=== PATIENT | male | born 1945 | race Caucasian/White ===

== ENCOUNTER 2018-06-08 12:46 | Inpatient (IN) | payer MEDICARE ==
[2018-06-08 13:14] LABS: % BASOPHILS 0.2 % (0.0-2.0); % EOSINOPHILS 1.4 % (0.0-5.0); % LYMPHOCYTES 14.3 % (20.0-50.0); % MONOCYTES 7.6 % (2.0-10.0); % NEUTROPHILS 76.5 % (40.0-80.0); EOSINOPHILE ABSOLUTE 0.2 Th/cmm (0.1-0.4); HEMATOCRIT 43.7 % (41.0-60); HEMOGLOBIN 14.5 gm/dL (12-16); LYMPHOCYTE ABSOLUTE 1.8 Th/cmm (1.5-3.0); MEAN CELL VOLUME 86.1 fl (80-99); MEAN CORPUSCULAR HEMOGLOBIN 28.6 pg (27.0-31.0); MEAN CORPUSCULAR HGB CONC 33.3 pg (28.0-36.0); MEAN PLATELET VOLUME 6.6 fl; MONOCYTE ABSOLUTE 0.9 Th/cmm (0.3-1.0); NEUTROPHILE ABSOLUTE 9.4 Th/cmm (1.8-8.0); PLATELET COUNT 237 Th/cmm (150-400); RED BLOOD COUNT 5.07 Mil/cmm (3.80-5.80); RED CELL DISTRIBUTION WIDTH 13.6 % (11.5-20.0); WHITE BLOOD COUNT 12.3 Th/cmm (4.8-10.8)
--- NOTE | 2018-06-08 13:19 | ED Physician Chart ---
ED Chief Complaint/HPI - Patient Information Date Seen:: 06/08/18 Time Seen:: 13:14 Chief Complaint:: abdominal pain History of Present Illness:: this is a 73 yr old male who is here from a [facility] sent here for abdominal pain. He is mentally challenged and cannot understand anything that is said. Allergies:: Allergies Allergy/AdvReac Type Severity Reaction Status Date / Time No Known Allergies Allergy Verified 06/08/18 13:03 Vitals:: Vital Signs - 8 hr 06/08/18 13:03 Temp 97.5 F HR 80 RR 18 BP 120/74 O2 Sat % 99 Historian:: Medical Records Review:: Nurse's Note Reviewed, Transfer documents Reviewed ED Review of Systems - Review of Systems General/Constitutional: No fever, No chills, No weight loss, No weakness, No diaphoresis, No edema, No loss of appetite, Other (this patient is unable to give a review of systems) Skin: No skin lesions, No rash, No bruising Head: No headache, No light-headedness Eyes: No loss of vision, No pain, No diplopia ENT: No earache, No nasal drainage, No sore throat, No tinnitus Neck: No neck pain, No swelling, No thyromegaly, No stiffness, No mass noted Cardio Vascular: No chest pain, No palpitations, No PND, No orthopnea, No edema Pulmonary: No SOB, No cough, No sputum, No wheezing GI: No nausea, No vomiting, No diarrhea, No pain, No melena, No hematochezia, No constipation, No hematemesis G/U: No dysuria, No frequency, No hematuria Musculoskeletal: No bone or joint pain, No back pain, No muscle pain Endocrine: No polyuria, No polydipsia Psychiatric: No prior psych history, No depression, No anxiety, No suicidal ideation Hematopoietic: No bruising, No lymphadenopathy Allergic/Immuno: No urticaria, No angioedema Neurological: No syncope, No focal symptoms, No weakness, No paresthesia, No headache, No seizure, No dizziness, No confusion, No vertigo ED Past Medical History - Past Medical History Obtainable: Yes Past Medical History: HTN, Dementia Family History: None Social History: Non Smoker, No Alcohol, No Drug Use, , Care Facility Surgical History: None Psychiatricy History: Depression Medication: Reviewed Family Medical History - Family Member Mother History Unknown: Yes ED Physical Exam - Physical Examination General/Constitutional: Awake, Well-developed, well-nourished, Alert, No distress, GCS 15, Non-toxic appearing, Ambulatory Head: Atraumatic Eyes: Lids, conjuctiva normal, PERRL, EOMI Skin: Nl inspection, No rash, No skin lesions, No ecchymosis, Well hydrated, No lymphadenopathy ENMT: External ears, nose nl, Nasal exam nl, Lips, teeth, gums nl Neck: Nontender, Full ROM w/o pain, No JVD, No nuchal rigidity, No bruit, No mass, No stridor Respiratory: Nl effort/Exclusion, Clear to Auscultation, No Wheeze/Rhonchi/Rales Cardio Vascular: RRR, No murmur, gallop, rubs, NL S1 S2 GI: No tenderness/rebounding/guarding, No organomegaly, No hernia, Normal BS's, Nondistended, No mass/bruits, No McBurney tenderness : No CVA tenderness Extremities: No tenderness or effusion, Full ROM, normal strength in all extremities, No edema, Normal digits & nails Neuro/Psych: Alert/oriented, DTR's symmetric, Normal sensory exam, Normal motor strength, Judgement/insight normal, Mood normal, Normal gait, No focal deficits Misc: Normal back, No paraspinal tenderness ED Labs/Radiology/EKG Results - Lab Results Results: Laboratory Results - last 24 hr 06/08/18 06/08/18 06/08/18 13:00 13:00 13:00 WBC 12.3 H RBC 5.07 Hgb 14.5 Hct 43.7 MCV 86.1 MCH 28.6 MCHC Differential 33.3 RDW 13.6 Plt Count 237 MPV 6.6 Neutrophils % 76.5 Lymphocytes % 14.3 L Monocytes % 7.6 Eosinophils % 1.4 Basophils % 0.2 PT 10.4 INR 1.00 Sodium 134 L Potassium 3.8 Chloride 102 Carbon Dioxide 25.3 Anion Gap 10.5 BUN 16 Creatinine 0.7 Est GFR ( Amer) TNP Est GFR (Non-Af Amer) TNP BUN/Creatinine Ratio 22.9 Glucose 119 H Calcium 9.2 Total Bilirubin 0.8 AST 11 L ALT 11 Alkaline Phosphatase 48 Troponin I Total Protein 6.6 Albumin 3.7 L Globulin 2.9 Albumin/Globulin Ratio 1.3 TSH 06/08/18 06/08/18 13:00 13:00 WBC RBC Hgb Hct MCV MCH MCHC Differential RDW Plt Count MPV Neutrophils % Lymphocytes % Monocytes % Eosinophils % Basophils % PT INR Sodium Potassium Chloride Carbon Dioxide Anion Gap BUN Creatinine Est GFR ( Amer) Est GFR (Non-Af Amer) BUN/Creatinine Ratio Glucose Calcium Total Bilirubin AST ALT Alkaline Phosphatase Troponin I < 0.01 L Total Protein Albumin Globulin Albumin/Globulin Ratio TSH 1.83 - Radiology Results Results: ct scan of abdomen = severely enlarged prostate gland L2 compression fracture chest x-ray = nad - EKG Interpretations EKG Time:: 13:08 Rate & Rhythm: ratee= 68 , sinus [place]: left axis Intervals: no ectopy noted ED Assessment - Assessment General Assessment: abdominal pain prostate disease back pain ED Septic Shock - . Is Septic Shock (SBP<90, OR Lactate>4 mmol\L) present?: No - <6hrs of presentation: Vital Signs: Vital Signs - 8 hr 06/08/18 13:03 Temp 97.5 F HR 80 RR 18 BP 120/74 O2 Sat % 99 ED Reassessment (Disposition) - Reassessment Reassessment Condition:: Unchanged - Diagnosis Diagnosis:: acute abdominal pain dementia severe prostate disease L2 compression fracture - Patient Disposition Discharge/Transfer:: Acute Care w/in this hosp Admitting Medical Physician:: Fernando Younger Condition at Disposition:: Improved
[2018-06-08 13:22] LABS: PROTHROMBIN TIME (TEST) 10.4 SECONDS (9.5-11.5)
[2018-06-08 13:24] LABS: ALB/GLOB RATIO 1.3 (1.0-1.8); ALBUMIN 3.7 gm/dL (4.2-5.5); ALKALINE PHOSPHATASE 48 U/L (34-104); ANION GAP 10.5 (7.0-16.0); BILIRUBIN,TOTAL 0.8 mg/dL (0.3-1.0); BUN - UREA NITROGEN 16 mg/dL (7-25); CALCIUM SERUM 9.2 mg/dL (8.6-10.3); CARBON DIOXIDE 25.3 mEq/L (21.0-31.0); CHLORIDE 102 mEq/L (98-107); CREATININE - SERUM 0.7 mg/dL (0.7-1.3); GLUCOSE 119 mg/dL (70-105); POTASSIUM SERUM 3.8 mEq/L (3.5-5.1); SGOT 11 U/L (13-39); SGPT/ALT 11 U/L (7-52); SODIUM SERUM 134 mEq/L (136-145); TOTAL PROTEIN,SERUM 6.6 gm/dL (6.0-8.3)
--- NOTE | 2018-06-08 13:54 | Diagnostic Imaging Report ---
Portable chest x-ray History: Pain Allowing for portable technique the heart size is normal. No focal pulmonary parenchymal processes. No hilar or mediastinal abnormalities. Impression: No acute abnormalities.
[2018-06-08] MEDS ORDERED: Haloperidol Lactate 5 mg/mL 1mL Vial IM STA (14:29)
[2018-06-08] MEDS ORDERED: Haloperidol Lactate 5 mg/mL 1mL Vial ONE (14:34)
[2018-06-08 15:45] LABS: URINE SOURCE CLEAN C
[2018-06-08 15:56] LABS: URINE BILIRUBIN NEGATIVE (NEGATIVE); URINE BLOOD NEGATIVE (NEGATIVE); URINE GLUCOSE (UA) NEGATIVE (NEGATIVE); URINE KETONE NEGATIVE (NEGATIVE); URINE LEUKOCYTE ESTERASE NEGATIVE (NEGATIVE); URINE NITRATE NEGATIVE (NEGATIVE); URINE PH 6.5 (4.6 - 8.0); URINE PROTEIN NEGATIVE (NEGATIVE); URINE UROBILINOGEN 0.2 E.U./dL (0.2 - 1.0)
[2018-06-08 15:57] LABS: URINE CLARITY CLEAR (CLEAR); URINE COLOR YELLOW; URINE MICROSCOPIC INDICATED? YES
[2018-06-08 16:04] LABS: URINE RBC 0-2 /hpf (0-5)
[2018-06-08 16:05] LABS: URINE BACTERIA FEW /hpf (NONE SEEN); URINE EPITHELIAL CELLS FEW /lpf (FEW)
[2018-06-08] MEDS ORDERED: Acetaminophen 500 MG TAB PO PRN (21:27)
[2018-06-08] MEDS ORDERED: Fleet Enema 135 mL RC PRN (21:27)
--- NOTE | 2018-06-08 21:51 | History & Physical ---
ADMIT DATE: 06/08/2018 CHIEF COMPLAINT: Worsening confusion and abdominal pain. HISTORY OF PRESENT ILLNESS: The patient is a 73-year-old male admitted from the Emergency Room to telemetry floor of [facility] due to altered level of consciousness with dysphagia and acute abdominal pain. For the abdominal pain, according to the ER physician, abdominal and pelvic CT scan revealed no acute disease, but a significant partially enlargement. However, I do not have the official report of the CT scan yet. The patient is very confused, does not answer questions. His white count is elevated to 12,300. The patient's sodium is 134. Troponin less than 0.01. TSH 1.83, which is normal. CT scan of the abdomen also revealed L2 compression fracture. PAST MEDICAL HISTORY: Including urinary tract infection, dysphagia, abnormal posture, weakness, dementia, depression, anxiety. PAST SURGICAL HISTORY: This cannot be reliably obtained as the patient does not answer questions. MEDICATIONS: See medication reconciliation list. ALLERGIES: No known drug allergies. REVIEW OF SYSTEMS: Not feasible. PHYSICAL EXAMINATION: GENERAL: Well-developed female in no acute distress. SKIN: Warm. VITAL SIGNS: Basically stable. HEENT: Normocephalic, atraumatic. Pupils equal, round, react to light and accommodation. CHEST: Symmetrical. LUNGS: Clear to auscultation bilaterally. CARDIAC: Normal sinus rhythm. ABDOMEN: Benign, soft, nontender. EXTREMITIES: No clubbing, cyanosis, edema bilaterally, 2+. NEUROLOGIC: Unremarkable. LABORATORY DATA: Reviewed as seen from the computer. ASSESSMENT AND PLAN: 1. Altered level of consciousness: Probably due to metabolic encephalopathy and dementia. We will observe closely. 2. Abdominal pain: Etiology is not entirely clear. We will observe closely. 3. Leukocytosis: Blood culture ordered, empiric antibiotics started, which will be adjusted accordingly. 4. Dysphagia: Swallowing evaluation ordered and aspiration precaution. 5. L2 compression fracture: Physical therapy. 6. DVT prophylaxis. JOB# [id number]
[2018-06-08] MEDS: D5-0.9%NS 1,000 ML IV SCH (23:17)
--- NOTE | 2018-06-09 10:40 | Diagnostic Imaging Report ---
Exam: CT examination abdomen pelvis. HISTORY: Abdominal pain Total DLP equals 586 CTDI equals 10.8 Findings: Multiple contiguous thin section of the abdomen pelvis obtained from lower thorax to pubic symphysis without the administration of oral or intravenous contrast material, no prior studies available comparison. The study demonstrates a mild motion artifacts. Liver and spleen are intact. The gallbladder is normal. The kidneys demonstrate no evidence of obstructive uropathy or nephrolithiasis. Small vascular calcification right kidney appreciated Abdominal aorta is calcified. There is evidence of for enlarged prostate gland protruding into urinary bladder. Degenerative changes lumbar spine with the compression fracture of L2 lumbar vertebra appreciated most likely chronic. There is no evidence for lytic or blastic lesions. IMPRESSION: Large prostate gland protruding to urinary bladder using the bladder wall is thickened. Degenerative changes lumbar spine with L2 lumbar vertebra compression.
[2018-06-09] MEDS: Multivitamin w/ Minerals Tab PO SCH (12:47)
[2018-06-09] MEDS ORDERED: VTE Chemical Prophylaxis Screen/Admission MC PRN (14:27)
[2018-06-09] MEDS ORDERED: Probiotic Screen MC PRN (15:32)
[2018-06-09] MEDS: D5-0.9%NS 1,000 ML IV SCH (15:40)
[2018-06-09] MEDS: Lactobacillus Rhamnosus GG 15 Billion CFU CAP.SPRINK PO SCH (16:58)
--- NOTE | 2018-06-09 17:23 | Consultation ---
DATE OF CONSULTATION: 06/09/2018 HISTORY OF PRESENT ILLNESS: A 73-year-old male coming in from senior living. Apparently mentally challenged, is not really able to understand much. The patient is not answering any questions, not even his name, does not know where he is, does not know the year, does not know the month. Per staff, he is trying to hit staff, agitated, aggressive, highly impulsive. PAST PSYCHIATRIC HISTORY: Developmental disability. FAMILY HISTORY: Noncontributory. SOCIAL HISTORY: Coming in from senior living. Daughter involved. MEDICATIONS: Noted. MENTAL STATUS EXAMINATION: Stated age. Fair eye contact. Awake, alert, but very confused, disoriented, not answering any questions appropriately. No overt SI or HI, unclear psychotic symptoms. Poor impulse control. PROVISIONAL DIAGNOSES: Developmental disability. The patient is on Aricept, possible dementia. Diagnosis also psychosis, unspecified; mood, unspecified; anxiety, unspecified. MEDICAL: Please see full H and P. RECOMMENDATIONS AND PLAN: We will attempt to increase collateral. The patient may benefit from dosing of Depakote. The patient may need Geropsych placement if behaviors persist. JOB# [id number]
[2018-06-09] MEDS ORDERED: Magnesium Hydroxide (MOM) 30 mL UDC PO SCH (21:00)
[2018-06-10] MEDS: D5-0.9%NS 1,000 ML IV SCH ×2 (04:55→18:28)
[2018-06-10] MEDS: Multivitamin w/ Minerals Tab PO SCH (09:15)
[2018-06-10] MEDS: Lactobacillus Rhamnosus GG 15 Billion CFU CAP.SPRINK PO SCH (09:15)
--- NOTE | 2018-06-10 10:26 | Internal Medicine Prog Note ---
Internal Medicine Subjective - Subjective Service Date: 06/10/18 Patient seen and examined:: without staff Patient is:: awake, non-verbal, non-interactive, in bed Per staff patient has:: no adverse event Internal Medicine Objective - Results Result Diagrams: 06/08/18 13:00 06/08/18 13:00 Recent Labs: Laboratory Last Values WBC 12.3 Th/cmm (4.8-10.8) H 06/08/18 13:00 RBC 5.07 Mil/cmm (3.80-5.80) 06/08/18 13:00 Hgb 14.5 gm/dL (12-16) 06/08/18 13:00 Hct 43.7 % (41.0-60) 06/08/18 13:00 MCV 86.1 fl (80-99) 06/08/18 13:00 MCH 28.6 pg (27.0-31.0) 06/08/18 13:00 MCHC Differential 33.3 pg (28.0-36.0) 06/08/18 13:00 RDW 13.6 % (11.5-20.0) 06/08/18 13:00 Plt Count 237 Th/cmm (150-400) 06/08/18 13:00 MPV 6.6 fl 06/08/18 13:00 Neutrophils % 76.5 % (40.0-80.0) 06/08/18 13:00 Lymphocytes % 14.3 % (20.0-50.0) L 06/08/18 13:00 Monocytes % 7.6 % (2.0-10.0) 06/08/18 13:00 Eosinophils % 1.4 % (0.0-5.0) 06/08/18 13:00 Basophils % 0.2 % (0.0-2.0) 06/08/18 13:00 PT 10.4 SECONDS (9.5-11.5) 06/08/18 13:00 INR 1.00 (0.5-1.4) 06/08/18 13:00 Sodium 134 mEq/L (136-145) L 06/08/18 13:00 Potassium 3.8 mEq/L (3.5-5.1) 06/08/18 13:00 Chloride 102 mEq/L (98-107) 06/08/18 13:00 Carbon Dioxide 25.3 mEq/L (21.0-31.0) 06/08/18 13:00 Anion Gap 10.5 (7.0-16.0) 06/08/18 13:00 BUN 16 mg/dL (7-25) 06/08/18 13:00 Creatinine 0.7 mg/dL (0.7-1.3) 06/08/18 13:00 Est GFR ( Amer) TNP 06/08/18 13:00 Est GFR (Non-Af Amer) TNP 06/08/18 13:00 BUN/Creatinine Ratio 22.9 06/08/18 13:00 Glucose 119 mg/dL (70-105) H 06/08/18 13:00 Calcium 9.2 mg/dL (8.6-10.3) 06/08/18 13:00 Total Bilirubin 0.8 mg/dL (0.3-1.0) 06/08/18 13:00 AST 11 U/L (13-39) L 06/08/18 13:00 ALT 11 U/L (7-52) 06/08/18 13:00 Alkaline Phosphatase 48 U/L (34-104) 06/08/18 13:00 Troponin I < 0.01 ng/mL (0.01-0.05) L 06/08/18 13:00 Total Protein 6.6 gm/dL (6.0-8.3) 06/08/18 13:00 Albumin 3.7 gm/dL (4.2-5.5) L 06/08/18 13:00 Globulin 2.9 gm/dL 06/08/18 13:00 Albumin/Globulin Ratio 1.3 (1.0-1.8) 06/08/18 13:00 TSH 1.83 uIU/ml (0.34-5.60) 06/08/18 13:00 Urine Source CLEAN C 06/08/18 15:30 Urine Color YELLOW 06/08/18 15:30 Urine Clarity CLEAR (CLEAR) 06/08/18 15:30 Urine pH 6.5 (4.6 - 8.0) 06/08/18 15:30 Ur Specific Ethel 1.010 (1.005-1.030) 06/08/18 15:30 Urine Protein NEGATIVE mg/dL (NEGATIVE) 06/08/18 15:30 Urine Glucose (UA) NEGATIVE mg/dL (NEGATIVE) 06/08/18 15:30 Urine Ketones NEGATIVE mg/dL (NEGATIVE) 06/08/18 15:30 Urine Blood NEGATIVE (NEGATIVE) 06/08/18 15:30 Urine Nitrate NEGATIVE (NEGATIVE) 06/08/18 15:30 Urine Bilirubin NEGATIVE (NEGATIVE) 06/08/18 15:30 Urine Urobilinogen 0.2 E.U./dL (0.2 - 1.0) 06/08/18 15:30 Ur Leukocyte Esterase NEGATIVE (NEGATIVE) 06/08/18 15:30 Urine RBC 0-2 /hpf (0-5) H 06/08/18 15:30 Urine WBC 2-5 /hpf (0-5) 06/08/18 15:30 Ur Epithelial Cells FEW /lpf (FEW) 06/08/18 15:30 Urine Bacteria FEW /hpf (NONE SEEN) 06/08/18 15:30 - Physical Exam Vitals and I&O: Vital Signs Temp 97.9 F 06/10/18 04:00 Pulse 69 06/10/18 04:00 Resp 18 06/10/18 04:00 BP 134/68 06/10/18 04:00 Pulse Ox 96 06/10/18 04:00 Intake & Output 06/09/18 06/10/18 06/10/18 18:59 06:59 18:59 Intake Total 1000 1720 Balance 1000 1720 Weight (lbs) 70.806 kg Intake: Intake, IV Amount 1000 1000 D5-0.9%Ns 1,000 ml @ 80 1000 1000 mls/hr IV .[id number] [facility] Rx #:[id number] Oral 720 Other: # Voids 1 # Bowel Movements 1 Stool Characteristics Liquid Black Weight Source Bedscale Active Medications: Current Medications Acetaminophen (Tylenol) 650 mg PO Q4HR PRN PRN Reason: Pain or Fever >101 Stop: 08/07/18 21:26 Last Admin: 06/09/18 20:23 Dose: 650 mg Acetaminophen (Tylenol Extra Strength) 1,000 mg PO Q4HR PRN PRN Reason: Pain (Moderate) 4-7 Stop: 08/07/18 21:26 Benztropine Mesylate (Cogentin) 0.5 mg PO BID [facility] Stop: 08/08/18 08:59 Last Admin: 06/10/18 09:15 Dose: 0.5 mg Bisacodyl (Dulcolax 10 Mg Supp) 10 mg RC DAILY PRN PRN Reason: Constipation Stop: 08/07/18 21:26 Clonazepam (Klonopin) 0.5 mg PO HS [facility]; Protocol Stop: 08/08/18 20:59 Last Admin: 06/09/18 20:23 Dose: 0.5 mg Docusate Sodium (Colace) 250 mg PO DAILY [facility] Stop: 08/08/18 08:59 Last Admin: 06/09/18 12:46 Dose: Not Given Donepezil HCl (Aricept) 5 mg PO Q12HR [facility] Stop: 08/07/18 21:59 Last Admin: 06/10/18 09:15 Dose: 5 mg Heparin Sodium (Porcine) (Heparin) 5,000 units SUBQ Q12HR [facility] Stop: 08/08/18 20:59 Last Admin: 06/10/18 09:15 Dose: 5,000 units Dextrose/Sodium Chloride (D5-0.9%Ns) 1,000 mls @ 80 mls/hr IV .[id number] [facility] Stop: 08/07/18 21:59 Last Admin: 06/10/18 04:55 Dose: 80 mls/hr Ceftriaxone Sodium 1 gm/ (Dextrose) 50 mls @ 100 mls/hr IV Q24HR [facility] Stop: 08/08/18 12:59 Last Admin: 06/09/18 13:02 Dose: 100 mls/hr Influenza Virus Vaccine (Flu Ad) 0.5 ml IM .ONCE ONE Stop: 06/10/18 14:01 Lactobacillus Rhamnosus (Culturelle 15b) 1 each PO DAILY [facility] Stop: 08/08/18 15:59 Last Admin: 06/10/18 09:15 Dose: 1 each Lorazepam (Ativan) 0.5 mg IVP Q6H PRN; Protocol PRN Reason: Agitation Stop: 08/08/18 12:09 Last Admin: 06/10/18 09:52 Dose: 0.5 mg Magnesium Hydroxide (Milk Of Magnesia) 30 ml PO HS [facility] Stop: 08/08/18 20:59 Last Admin: 06/09/18 20:28 Dose: Not Given Megestrol Acetate (Megace) 400 mg PO BID [facility] Stop: 08/08/18 08:59 Last Admin: 06/09/18 16:56 Dose: 400 mg Memantine (Namenda) 5 mg PO Q12HR [facility] Stop: 08/07/18 21:59 Last Admin: 06/10/18 09:15 Dose: 5 mg Mirtazapine (Remeron) mg PO HS [facility]; Protocol Stop: 08/08/18 20:59 Miscellaneous (Vte Chemical Prophylaxis Screen/ Admission) 1 ea [facility] PRN PRN PRN Reason: PROTOCOL Stop: 08/08/18 14:26 Miscellaneous (Probiotic Screen) 1 ea [facility] PRN PRN PRN Reason: PROTOCOL Stop: 08/08/18 15:31 Psyllium Hydrophilic Mucilloid (Metamucil) 1 pkt PO BID [facility] Stop: 08/08/18 08:59 Last Admin: 06/09/18 16:56 Dose: 1 pkt Sodium Phosphate (Fleet Enema) 135 ml RC Q48H PRN PRN Reason: Constipation Stop: 08/07/18 21:26 General: weak, lethargic, demented HEENT: NC/AT, PERRLA, anicteric sclerae Neck: Supple, No JVD Lungs: CTAB, congested Cardiovascular: RRR, Normal S1, Normal S2 Abdomen: soft, non-distended Extremities: clear Internal Medicine Assmt/Plan - Assessment Assessment: ALOC: observe for now. Leukocystosis: etiology? repeat CBC Abd pain: better. Enlarged prostate on CT: PSA ordered. Agitation: observe Psychosis: adjusting meds. Dysphagia: ST and aspiration evaluation.
[2018-06-10] MEDS ORDERED: Influenza Vaccine (65 yr & older) 0.5 ml Syr IM ONE (14:00)
[2018-06-10] MEDS ORDERED: Diltiazem 30 mg Tab PO SCH (19:15)
[2018-06-10] MEDS ORDERED: Acetaminophen 500 MG TAB PO PRN (23:26)
[2018-06-11] MEDS ORDERED: Fleet Enema 135 mL RC PRN (00:16)
[2018-06-11] MEDS ORDERED: Magnesium Hydroxide (MOM) 30 mL UDC PO PRN (00:22)
--- NOTE | 2018-06-11 00:47 | Consultation ---
DATE OF CONSULTATION: 06/10/2018 HISTORY OF PRESENT ILLNESS: A 73-year-old male coming from [facility] with developmental disability, unable to even tell me his name. Per staff, noted to be restless, ongoing safety concerns. Per social worker delinquency prevention, the patient coming from [place]. The patient still needing restraints at times, still unruly, not following unit rules or directions. The patient biting and pulling IV line. PAST PSYCHIATRIC HISTORY: Noted. MENTAL STATUS EXAMINATION: Stated age, AO to zero, restless, unruly, still anxious, agitated, trying to bite staff. Medications were noted. PROVISIONAL DIAGNOSIS: No change. Developmental disability; mood, unspecified; anxiety, unspecified; psychosis, unspecified. RECOMMENDATIONS AND PLAN: We will attempt to reach out to daughter. We will attempt to increase collateral. Clarify diagnosis. It is unclear if the differential is correct perhaps possibly just dementia with behaviors. It is unclear if developmental disability is accurate. The patient may need transfer to [facility]. [facility]# [id number]
[2018-06-11 06:29] LABS: % BASOPHILS 0.3 % (0.0-2.0); % EOSINOPHILS 5.6 % (0.0-5.0); % LYMPHOCYTES 9.2 % (20.0-50.0); % MONOCYTES 9.4 % (2.0-10.0); % NEUTROPHILS 75.5 % (40.0-80.0); EOSINOPHILE ABSOLUTE 0.6 Th/cmm (0.1-0.4); HEMATOCRIT 39.6 % (41.0-60); HEMOGLOBIN 13.4 gm/dL (12-16); MEAN CELL VOLUME 85.5 fl (80-99); MEAN CORPUSCULAR HEMOGLOBIN 28.9 pg (27.0-31.0); MEAN CORPUSCULAR HGB CONC 33.8 pg (28.0-36.0); MEAN PLATELET VOLUME 6.8 fl; NEUTROPHILE ABSOLUTE 8.1 Th/cmm (1.8-8.0); PLATELET COUNT 213 Th/cmm (150-400); RED BLOOD COUNT 4.63 Mil/cmm (3.80-5.80); RED CELL DISTRIBUTION WIDTH 13.2 % (11.5-20.0); WHITE BLOOD COUNT 10.7 Th/cmm (4.8-10.8)
[2018-06-11 06:51] LABS: ALB/GLOB RATIO 0.9 (1.0-1.8); ALBUMIN 2.7 gm/dL (4.2-5.5); ALKALINE PHOSPHATASE 48 U/L (34-104); ANION GAP 10.5 (7.0-16.0); BUN - UREA NITROGEN 5 mg/dL (7-25); CALCIUM SERUM 8.3 mg/dL (8.6-10.3); CHLORIDE 106 mEq/L (98-107); CREATININE - SERUM 0.6 mg/dL (0.7-1.3); GLUCOSE 125 mg/dL (70-105); POTASSIUM SERUM 3.5 mEq/L (3.5-5.1); SGOT 15 U/L (13-39); SGPT/ALT 20 U/L (7-52); SODIUM SERUM 135 mEq/L (136-145); TOTAL PROTEIN,SERUM 5.8 gm/dL (6.0-8.3)
[2018-06-11] MEDS: D5-0.9%NS 1,000 ML IV SCH ×2 (06:52→21:49)
[2018-06-11] MEDS: Diltiazem 30 mg Tab PO SCH ×3 (07:11→17:39)
[2018-06-11] MEDS: Multivitamin w/ Minerals Tab PO SCH (09:35)
[2018-06-11] MEDS: Lactobacillus Rhamnosus GG 15 Billion CFU CAP.SPRINK PO SCH (09:35)
--- NOTE | 2018-06-11 15:35 | Consultation ---
DATE OF CONSULTATION: 06/11/[address] Younger. HISTORY OF PRESENT ILLNESS: This is a 73-year-old male patient who had been complaining of abdominal pain, severe. Following this, the patient was seen in the Emergency Room. The patient had a CT scan, which showed compression fracture of L2. The patient is admitted. Cardiac consult is requested. PAST MEDICAL HISTORY: Dementia, BPH, urinary tract infection, psychosis, and dysphagia. FAMILY HISTORY: Unremarkable. SOCIAL HISTORY: No history of smoking, alcohol abuse. ALLERGIES: None. PHYSICAL EXAMINATION: VITAL SIGNS: Blood pressure 130/80, pulse 70, and respirations 20. HEAD: Normocephalic. No lumps or bumps. EYES: Pupils equal, reactive to light. Fundi show AV nicking, sclerae white, conjunctivae pink. NECK: Carotid 2+. Normal upstroke. JVD flat. Thyroid not palpable. Lymph nodes not palpable. CHEST: Shows increased AP diameter. No kyphosis, scoliosis. LUNGS: Bilateral bronchovesicular breath sounds. HEART: PMI fifth intercostal space with lateral to midclavicular line. S1, S2. No S3, S4, soft systolic murmur. ABDOMEN: Soft. Liver, spleen not palpable. No organomegaly. Bowel sounds active. NEUROLOGIC: Unremarkable. EXTREMITIES: Peripheral pulses 2+. No pedal edema. CLINICAL IMPRESSION: L2 compression fracture, benign prostatic hypertrophy, urinary tract infection, dementia, psychosis, and dysphagia. PLAN: The patient to continue present management and monitor the patient. [facility]# [id number]
--- NOTE | 2018-06-11 22:51 | Internal Medicine Prog Note ---
Internal Medicine Subjective - Subjective Service Date: 06/11/18 Patient seen and examined:: without staff Patient is:: awake, non-verbal, non-interactive, in bed Per staff patient has:: no adverse event Internal Medicine Objective - Results Result Diagrams: 06/11/18 05:45 06/11/18 05:45 Recent Labs: Laboratory Last Values WBC 10.7 Th/cmm (4.8-10.8) 06/11/18 05:45 RBC 4.63 Mil/cmm (3.80-5.80) 06/11/18 05:45 Hgb 13.4 gm/dL (12-16) 06/11/18 05:45 Hct 39.6 % (41.0-60) L 06/11/18 05:45 MCV 85.5 fl (80-99) 06/11/18 05:45 MCH 28.9 pg (27.0-31.0) 06/11/18 05:45 MCHC Differential 33.8 pg (28.0-36.0) 06/11/18 05:45 RDW 13.2 % (11.5-20.0) 06/11/18 05:45 Plt Count 213 Th/cmm (150-400) 06/11/18 05:45 MPV 6.8 fl 06/11/18 05:45 Neutrophils % 75.5 % (40.0-80.0) 06/11/18 05:45 Lymphocytes % 9.2 % (20.0-50.0) L 06/11/18 05:45 Monocytes % 9.4 % (2.0-10.0) 06/11/18 05:45 Eosinophils % 5.6 % (0.0-5.0) H 06/11/18 05:45 Basophils % 0.3 % (0.0-2.0) 06/11/18 05:45 PT 10.4 SECONDS (9.5-11.5) 06/08/18 13:00 INR 1.00 (0.5-1.4) 06/08/18 13:00 Sodium 135 mEq/L (136-145) L 06/11/18 05:45 Potassium 3.5 mEq/L (3.5-5.1) 06/11/18 05:45 Chloride 106 mEq/L (98-107) 06/11/18 05:45 Carbon Dioxide 22.0 mEq/L (21.0-31.0) 06/11/18 05:45 Anion Gap 10.5 (7.0-16.0) 06/11/18 05:45 BUN 5 mg/dL (7-25) L 06/11/18 05:45 Creatinine 0.6 mg/dL (0.7-1.3) L 06/11/18 05:45 Est GFR ( Amer) TNP 06/11/18 05:45 Est GFR (Non-Af Amer) TNP 06/11/18 05:45 BUN/Creatinine Ratio 8.3 06/11/18 05:45 Glucose 125 mg/dL (70-105) H 06/11/18 05:45 Calcium 8.3 mg/dL (8.6-10.3) L 06/11/18 05:45 Magnesium 1.9 mg/dL (1.9-2.7) 06/10/18 10:30 Total Bilirubin 1.0 mg/dL (0.3-1.0) 06/11/18 05:45 AST 15 U/L (13-39) 06/11/18 05:45 ALT 20 U/L (7-52) 06/11/18 05:45 Alkaline Phosphatase 48 U/L (34-104) 06/11/18 05:45 Troponin I < 0.01 ng/mL (0.01-0.05) L 06/08/18 13:00 Total Protein 5.8 gm/dL (6.0-8.3) L 06/11/18 05:45 Albumin 2.7 gm/dL (4.2-5.5) L 06/11/18 05:45 Globulin 3.1 gm/dL 06/11/18 05:45 Albumin/Globulin Ratio 0.9 (1.0-1.8) L 06/11/18 05:45 Carcinoembryonic Ag 2.2 ng/mL (0.0-4.7) 06/08/18 13:00 Prostate Specific Ag 2.2 ng/mL (0.0-4.0) 06/08/18 13:00 TSH 1.83 uIU/ml (0.34-5.60) 06/08/18 13:00 Urine Source CLEAN C 06/08/18 15:30 Urine Color YELLOW 06/08/18 15:30 Urine Clarity CLEAR (CLEAR) 06/08/18 15:30 Urine pH 6.5 (4.6 - 8.0) 06/08/18 15:30 Ur Specific [place] 1.010 (1.005-1.030) 06/08/18 15:30 Urine Protein NEGATIVE mg/dL (NEGATIVE) 06/08/18 15:30 Urine Glucose (UA) NEGATIVE mg/dL (NEGATIVE) 06/08/18 15:30 Urine Ketones NEGATIVE mg/dL (NEGATIVE) 06/08/18 15:30 Urine Blood NEGATIVE (NEGATIVE) 06/08/18 15:30 Urine Nitrate NEGATIVE (NEGATIVE) 06/08/18 15:30 Urine Bilirubin NEGATIVE (NEGATIVE) 06/08/18 15:30 Urine Urobilinogen 0.2 E.U./dL (0.2 - 1.0) 06/08/18 15:30 Ur Leukocyte Esterase NEGATIVE (NEGATIVE) 06/08/18 15:30 Urine RBC 0-2 /hpf (0-5) H 06/08/18 15:30 Urine WBC 2-5 /hpf (0-5) 06/08/18 15:30 Ur Epithelial Cells FEW /lpf (FEW) 06/08/18 15:30 Urine Bacteria FEW /hpf (NONE SEEN) 06/08/18 15:30 - Physical Exam Vitals and I&O: Vital Signs Temp 99.1 F 06/11/18 20:00 Pulse 89 06/11/18 20:00 Resp 18 06/11/18 20:00 BP 103/63 06/11/18 20:00 Pulse Ox 99 06/11/18 20:00 Intake & Output 06/11/18 06/11/18 06/12/18 06:59 18:59 06:59 Intake Total 650 550 606.667 Balance 650 550 606.667 Weight (lbs) 71.214 kg 70.987 kg Intake: Intake, IV Amount 50 606.667 D5-0.9%Ns 1,000 ml @ 50 606.667 mls/hr IV .Q20H [facility] Rx#: [id number] cefTRIAXone 1 gm In 50 Dextrose 5% 50 ml @ 100 mls/hr IV Q24HR [facility] Rx#: [id number] Oral 600 550 Other: # Voids 2 3 # Bowel Movements 1 1 Weight Source Bedscale Bedscale Active Medications: Current Medications Acetaminophen (Tylenol) 650 mg PO Q4H PRN PRN Reason: Fever > 101 Stop: 09/06/18 23:16 Acetaminophen (Tylenol Extra Strength) 1,000 mg PO Q4H PRN PRN Reason: Pain (Moderate) Stop: 08/09/18 23:25 Benztropine Mesylate (Cogentin) 0.5 mg PO BID [facility] Stop: 08/10/18 08:59 Last Admin: 06/11/18 17:39 Dose: 0.5 mg Bisacodyl (Dulcolax 10 Mg Supp) 10 mg RC DAILY PRN PRN Reason: Constipation Stop: 08/09/18 23:40 Clonazepam (Klonopin) 0.5 mg PO HS PRN; Protocol PRN Reason: anxity Stop: 08/09/18 23:48 Diltiazem HCl (Cardizem) 60 mg PO Q6HR [facility] Stop: 08/10/18 05:59 Last Admin: 06/11/18 17:39 Dose: 60 mg Docusate Sodium (Colace) 250 mg PO DAILY [facility] Stop: 08/10/18 08:59 Last Admin: 06/11/18 09:37 Dose: Not Given Donepezil HCl (Aricept) 5 mg PO DAILY [facility] Stop: 08/10/18 08:59 Last Admin: 06/11/18 09:36 Dose: 5 mg Heparin Sodium (Porcine) (Heparin) 5,000 units SUBQ Q12HR [facility] Stop: 08/10/18 08:59 Last Admin: 06/11/18 21:49 Dose: 5,000 units Ceftriaxone Sodium 1 gm/ (Dextrose) 50 mls @ 100 mls/hr IV Q24H [facility] Stop: 08/10/18 12:59 Last Admin: 06/11/18 15:07 Dose: 100 mls/hr Dextrose/Sodium Chloride (D5-0.9%Ns) 1,000 mls @ 50 mls/hr IV .Q20H [facility] Stop: 08/09/18 23:56 Last Admin: 06/11/18 21:49 Dose: 50 mls/hr Lactobacillus Rhamnosus (Culturelle 15b) 1 each PO DAILY [facility] Stop: 08/10/18 08:59 Last Admin: 06/11/18 09:35 Dose: 1 each Lorazepam (Ativan) 0.5 mg IVP Q6HR PRN; Protocol PRN Reason: Agitation Stop: 08/10/18 00:19 Magnesium Hydroxide (Milk Of Magnesia) 30 ml PO HS PRN PRN Reason: Constipation Stop: 08/10/18 00:21 Megestrol Acetate (Megace) 400 mg PO BID [facility]; Protocol Stop: 08/10/18 08:59 Last Admin: 06/11/18 18:45 Dose: 400 mg Memantine (Namenda) 5 mg PO DAILY [facility] Stop: 08/10/18 08:59 Last Admin: 06/11/18 09:36 Dose: 5 mg Mirtazapine (Remeron) 15 mg PO HS [facility]; Protocol Stop: 08/10/18 20:59 Last Admin: 06/11/18 21:48 Dose: 15 mg Psyllium Hydrophilic Mucilloid (Metamucil) 1 pkt PO Q12HR [facility] Stop: 08/10/18 08:59 Last Admin: 06/11/18 21:48 Dose: 1 pkt Sodium Phosphate (Fleet Enema) 135 ml RC Q48HR PRN PRN Reason: Constipation Stop: 08/10/18 00:15 General: weak, lethargic, demented HEENT: NC/AT, PERRLA, anicteric sclerae Neck: Supple, No JVD Lungs: CTAB, congested Cardiovascular: RRR, Normal S1, Normal S2 Abdomen: soft, non-distended Extremities: clear Internal Medicine Assmt/Plan - Assessment Assessment: Tachycardia: Tele monitoring; TSH normal. ALOC: observe for now. Leukocystosis: etiology? repeat CBC Abd pain: better. Enlarged prostate on CT: PSA ordered. Agitation: observe Psychosis: adjusting meds. Dysphagia: ST and aspiration evaluation.
--- NOTE | 2018-06-11 23:38 | Progress Notes ---
DATE: 06/11/2018 SUBJECTIVE: Case was discussed with staff of the patient, reviewed records. This is a 73-year-old male who was admitted on 06/08/2018 from nursing facility. 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 He is unable to answer questions. The patient cannot even tell his name. Continues to have poor insight, unpredictable and impulsive. The patient may be demented, if the patient needs further treatment the patient may go to [facility] if any acting out behavior and at this point, he is currently on Cogentin 0.5 mg twice a day and Klonopin 0.5 mg at bedtime as needed and Aricept 5 mg twice a day and Namenda 5 mg daily, Remeron 15 mg at bedtime. The patient may continue medication as mentioned, if he needs any further help he could go to [facility]. Thank you very much for allowing me to participate in the care of this patient. JOB# [id number]
[2018-06-12] MEDS: Diltiazem 30 mg Tab PO SCH ×4 (00:10→17:23)
[2018-06-12] MEDS: Lactobacillus Rhamnosus GG 15 Billion CFU CAP.SPRINK PO SCH (09:39)
[2018-06-12] MEDS: Multivitamin w/ Minerals Tab PO SCH (09:39)
--- NOTE | 2018-06-12 14:40 | Progress Notes ---
DATE: 06/12/2018 Case was discussed with staff of the patient. The patient continues to be confused, demented. He has mittens on because he was pulling his IV. Continues to be unpredictable and impulsive, needing redirections. He is compliant with the medication with no side effects, no sedation or nausea. He is on Remeron 50 mg at bedtime, Namenda 5 mg daily and the patient ____ acting out, he may want us to send him to [facility]; however, he is acting well, he can go back to the place where he was at. Thank you very much for allowing me to participate in the care of this most interesting gentleman. JOB# [id number]
[2018-06-12] MEDS ORDERED: Probiotic Screen MC PRN (15:53)
--- NOTE | 2018-06-17 15:51 | Discharge Summary ---
DATE OF DISCHARGE: 06/12/2018 FINAL DIAGNOSES: 1. Abdominal pain, resolved. 2. Leukocytosis, resolved. 3. Altered level of consciousness improved. 4. Agitation, stabilized. 5. Dysphagia, passes swallow evaluation. 6. Enlarged prostate with normal PSA. HOSPITAL COURSE: The patient is a 73-year-old male admitted due to abdominal pain with leukocytosis, agitation and confusion. The patient also had L2 compression fracture on the abdominal and pelvic CT scan, which I think it was just an incidental finding. On the CT scan, there was also a large prostate protruding urinary bladder. However, PSA is normal and Urology consultation was requested, but did not get a chance to come to see the patient prior to being discharged. The patient's overall condition stabilized and he was accepted back to residential. DISCHARGE CONDITION: Stable. DISPOSITION: [facility]. DISCHARGE MEDICATIONS: Continue medication from here. DIET: Cardiac, mechanical soft diet. ACTIVITY: Bed rest with physical therapy. FOLLOWUP: Follow up as soon as possible with urologist who did not get a chance to see the patient for the enlarged prostate. JOB# [id number]
== END 2018-06-12 15:25 | DRG 689 ==
LOC: ER 12:46 → MSI 16:32 → TELE 06-10 21:05
PROVIDERS: ADMIT Internal Medicine; ATTEND Internal Medicine
DX: N39.0 Urinary tract infection, site not specified (principal); G93.41 Metabolic encephalopathy; R13.10 Dysphagia, unspecified; M48.56XD Collapsed vertebra, not elsewhere classified, lumbar region, subsequent encounter for fracture with routine healing; F03.90 Unspecified dementia, unspecified severity, without behavioral disturbance, psychotic disturbance, mood disturbance, and anxiety; F39 Unspecified mood [affective] disorder; F41.9 Anxiety disorder, unspecified; N40.0 Benign prostatic hyperplasia without lower urinary tract symptoms; F79 Unspecified intellectual disabilities; I10 Essential (primary) hypertension; F32.9 Major depressive disorder, single episode, unspecified; F29 Unspecified psychosis not due to a substance or known physiological condition; R00.0 Tachycardia, unspecified
CPT/HCPCS: 36415-UA; 71045-TC; 80053-TC; 81001-TC; 82378-90; 83735-TC; 84153-90; 84443-TC; 84484-TC; 85025-TC; 85610-TC; 93005; J0696; J1630; J1644; J2060; J7042; X3401; Z7610